=== PATIENT | female | born 1980 | race Two or more races ===

== ENCOUNTER 2018-11-29 10:54 | Day surgery (SDC) | payer OTHER | END 2018-11-29 14:50 | disposition home or self-care (01) | LOC: AMB-ENDOS 10:54 | DX: K29.40 Chronic atrophic gastritis without bleeding (principal); K31.89 Other diseases of stomach and duodenum; K44.9 Diaphragmatic hernia without obstruction or gangrene ==

== ENCOUNTER 2022-05-27 08:02 | Outpatient (CLI) | payer OTHER | END 2022-05-27 09:09 | disposition home or self-care (01) | LOC: PRENATAL 08:02 | PROVIDERS: ATTEND Obstetrics & Gynecology Maternal & Fetal Medicine | DX: O35.9XX0 Maternal care for (suspected) fetal abnormality and damage, unspecified, not applicable or unspecified (principal); O28.1 Abnormal biochemical finding on antenatal screening of mother; O09.519 Supervision of elderly primigravida, unspecified trimester; Z3A.20 20 weeks gestation of pregnancy ==

== ENCOUNTER 2022-08-18 14:03 | Outpatient (CLI) | payer OTHER | END 2022-08-18 16:00 | disposition home or self-care (01) | LOC: PRENATAL 14:03 | PROVIDERS: ATTEND Obstetrics & Gynecology Maternal & Fetal Medicine | DX: O09.519 Supervision of elderly primigravida, unspecified trimester (principal); O28.1 Abnormal biochemical finding on antenatal screening of mother; O43.90 Unspecified placental disorder, unspecified trimester; Z3A.32 32 weeks gestation of pregnancy ==

== ENCOUNTER 2022-09-12 10:23 | Outpatient (CLI) | payer OTHER | END 2022-09-12 12:25 | disposition home or self-care (01) | LOC: PRENATAL 10:23 | PROVIDERS: ATTEND Obstetrics & Gynecology Maternal & Fetal Medicine | DX: O26.849 Uterine size-date discrepancy, unspecified trimester (principal); O36.8199 Decreased fetal movements, unspecified trimester, other fetus; O09.519 Supervision of elderly primigravida, unspecified trimester; O28.1 Abnormal biochemical finding on antenatal screening of mother; O43.90 Unspecified placental disorder, unspecified trimester; Z3A.35 35 weeks gestation of pregnancy ==